=== PATIENT | male | born 1955 | race Caucasian/White ===

== ENCOUNTER 2019-02-13 12:58 | Day surgery (SDC) | payer OTHER ==
[2019-02-13] MEDS ORDERED: LR 1,000 ML IV ONE (13:17)
--- NOTE | 2019-02-13 15:46 | PDGENHP ---
History & Physical Chief Complaint: epi pain, anemia History of Present Illness: on xarelto x 1 year, worseing anemia. epi luq pain Pertinent Past, Social, Family History: no tobacco. no alcohol. fhx - sister colon rectal, dad - ureter. autonomic hyperreflexia Relevant Physical Exam: A+Ox3. CTA. S1S2. +BS, soft, nt Cardiorespiratory Assessment: class III
--- NOTE | 2019-02-13 15:50 | PDANEPAE ---
ANE Past Medical History - Cardiovascular History Hx Hypertension: No Hx Arrhythmias: Yes Hx Chest Pain: No Hx Coronary Artery / Peripheral Vascular Disease: No Hx CHF / Valvular Disease: No Hx Palpitations: No Cardiovascular History Comment: PAfib. CARDIAC ARREST 4YRS AGO - Pulmonary History Hx COPD: No Hx Asthma/Reactive Airway Disease: No Hx Recent Upper Respiratory Infection: No Hx Oxygen in Use at Home: No Hx Sleep Apnea: Yes Sleep Apnea Screening Result - Last Documented: Positive Pulmonary History Comment: tawny uses cpap - Neurologic History Hx Cerebrovascular Accident: No Hx Seizures: Yes Hx Dementia: No Neurologic History Comment: several months since last seizure - Endocrine History Hx Diabetes: No - Renal History Hx Renal Disorders: No - Liver History Hx Hepatic Disorders: No - Neurological & Psychiatric Hx Hx Neurological and Psychiatric Disorders: Yes Neurological / Psychiatric History Comment: spinal cord injury 1977 - Cancer History Hx Cancer: Yes Cancer History Comment: melanoma 20yrs ago. basal cell - Congenital Disorder History Hx Congenital Disorders: No - GI History Hx Gastrointestinal Disorders: Yes Gastrointestinal History Comment: abd pain,nausea, tends to be constipated - Other Health History Other Health History: condom catheter. wounds left lat back,left elbow,right hip sees woud clinic - Chronic Pain History Chronic Pain: Yes (back and abd) - Surgical History Prior Surgeries: debridment of wounds with wound vacs ANE Review of Systems Review of Systems: - Exercise capacity METS (RN): 1 METS ANE Patient History - Allergies Allergies/Adverse Reactions: prochlorperazine [From Compazine] Allergy (Verified 02/01/19 14:22) Itching CONTRAST IV Allergy (Uncoded 02/01/19 14:22) Other-Enter Comments - Home Medications Home Medications: Baclofen 02/01/19 [Last Taken Unknown] Bactrim DS 02/01/19 [Last Taken Unknown] Calcitriol (*) 02/01/19 [Last Taken Unknown] Cyanocobalamin (Vitamin B-12) 02/01/19 [Last Taken Unknown] Depakote 02/01/19 [Last Taken Unknown] Duloxetine HCl 02/01/19 [Last Taken Unknown] Fentanyl 02/01/19 [Last Taken Unknown] Gabapentin 02/01/19 [Last Taken Unknown] Ibuprofen 02/01/19 [Last Taken Unknown] Keppra 02/01/19 [Last Taken Unknown] Lacosamide 02/01/19 [Last Taken Unknown] Magnesium 02/01/19 [Last Taken Unknown] Methenamine Lucy 02/01/19 [Last Taken Unknown] Monurol 02/01/19 [Last Taken Unknown] Ondansetron HCl 02/01/19 [Last Taken Unknown] Prilosec 02/01/19 [Last Taken Unknown] Promethazine HCl 02/01/19 [Last Taken Unknown] Senokot 02/01/19 [Last Taken Unknown] Sodium Chloride 02/01/19 [Last Taken Unknown] Tamsulosin HCl 02/01/19 [Last Taken Unknown] Tums 500MG (*) 02/01/19 [Last Taken Unknown] Valium 02/01/19 [Last Taken Unknown] Valproic Acid 02/01/19 [Last Taken Unknown] Vitamin B Complex 02/01/19 [Last Taken Unknown] Xarelto 02/01/19 [Last Taken Unknown] tiZANidine HCL 02/01/19 [Last Taken Unknown] - NPO status NPO Since - Liquids (Date): 02/13/19 NPO Since - Liquids (Time): 08:00 NPO Since - Solids (Date): 02/12/19 NPO Since - Solids (Time): 22:00 - Smoking Hx Smoking Status: Never smoked - Family Anes Hx Family Hx Anesthesia Complications: none ANE Labs/Vital Signs - Vital Signs Heart Rate: 54 Respiratory Rate: 16 O2 Sat (%): 93 Height: 177.8 cm Weight: 81.647 kg ANE Physical Exam - Airway Neck exam: FROM Mallampati Score: Class 1 Mouth exam: normal dental/mouth exam - Pulmonary Pulmonary: no respiratory distress, no rales or rhonchi, clear to auscultation - Cardiovascular Cardiovascular: regular rate and rhythym, no murmur, rub, or gallop - ASA Status ASA Status: III ANE Anesthesia Plan Anesthesia Plan: GA with mask Total IV Anesthesia: Yes
--- NOTE | 2019-02-13 15:51 | POSTANESTH ---
Post Anesthetic Evaluation Cardiovascular Status: Normal, Stable Respiratory Status: Normal, Stable Level of Consciousness/Mental Status: Can Participate in Eval Pain Control: Adequate, Prn Tx Ordered Nausea/Vomiting Control: Adequate, Prn Tx Ordered Complications Possibly Related to Anesthesia: None Noted
[2019-02-13] MEDS ORDERED: PROPOFOL/EMULSION 500 MG/50 ML BOTTLE IV ONE (16:06)
[2019-02-13] MEDS ORDERED: LIDOCAINE 2% 2 ML INJ ONE (16:06)
[2019-02-13] MEDS ORDERED: ALBUTEROL 3 ML DEYVIAL IH PRN (16:37)
[2019-02-13] MEDS ORDERED: ALBUTEROL 3 ML DEYVIAL ONE (16:37)
[2019-02-13] MEDS ORDERED: EPINEPHrine RACEMIC INH 0.5 ML DEYVIAL IH ONE (16:38)
--- NOTE | 2019-02-13 16:44 | GIREPORT ---
[facility] - Endoscopy Department Patient Name: Jacobo Ayon Procedure Date: 02/13/2019 3:46 PM Patient Type: Outpatient Attending MD/ ER Physician: Sagar Carson MD Procedure: Upper GI endoscopy Indications: Abdominal pain in the left upper quadrant, Iron deficiency anemia due t o suspected upper gastrointestinal bleeding Providers: Sagar Carson MD Referring MD: Blaire Lemons NP Medicines: Propofol per Anesthesia Complications: No immediate complications. Estimated blood loss: Minimal. Description of Procedure: After obtaining informed consent, the endoscope was passed under direct vision. Throughout the procedure, the patient's blood pressure, pulse, and oxygen saturations were monitored continuously. The Endoscope was intro duced through the mouth, and advanced to the third part of duodenum. The uppe r GI endoscopy was accomplished without difficulty. The patient tolerated th e procedure well. Findings: The examined esophagus was normal. A hiatal hernia was present. Scattered moderate inflammation characterized by congestion (edema), erosions, erythema, friability and granularity was found in the gastric body. Biopsies were taken with a cold forceps for histology. Estimated blood loss was minimal. The examined duodenum was normal. The exam was otherwise without abnormality. Estimated Blood Loss: Estimated blood loss was minimal. Post Op Diagnosis: - Normal esophagus. - Hiatal hernia. - Gastritis. Biopsied. - Normal examined duodenum. - The examination was otherwise normal. Recommendation: - Await pathology results. - My office will call with the pathology result with 5-7 days. If you h ave not heard from my office by 12-14, do not assume the pathology is navi l, please call [phone] to get the pathology results. - Use Prilosec (omeprazole) 40 mg PO BID. Take 30-60 minutes before breakfast and dinner (could use pantoprazole 40mg or other PPI as per formulary) - If anemia doesn't resolve then consider repeat colonoscopy and small bowel capsule endoscopy. - Patient has a contact number available for emergencies. The signs and symptoms of potential delayed complications were discussed with the pat ient. Return to normal activities tomorrow. Written discharge instructions we re provided to the patient. - Continue present medications. - Discharge patient to home (ambulatory). - Return to primary care physician as previously scheduled. - Thank you for allowing me to help in your patient's care. Do not hesi colvin to call with any questions. Attending Participation: I personally performed the entire procedure. Alli Magana M.D Sagar Carson MD 02/13/2019 4:43:56 PM This report has been signed electronicallyMatthew MD Alli Number of Addenda: 0 Note Initiated On: 02/13/2019 3:46 PM [email or web address]
[2019-02-13 18:06] VITALS: BP 102/64
== END 2019-02-13 18:00 | disposition home or self-care (01) ==
LOC: FSGY 12:58
PROVIDERS: ATTEND Internal Medicine Gastroenterology
PROC: 0DB68ZX Excision of Stomach, Via Natural or Artificial Opening Endoscopic, Diagnostic (ICD-10-PCS; principal; 2019-02-13 15:15)
DX: D50.9 Iron deficiency anemia, unspecified (principal); K44.9 Diaphragmatic hernia without obstruction or gangrene; K29.70 Gastritis, unspecified, without bleeding; I48.0 Paroxysmal atrial fibrillation; Z86.74 Personal history of sudden cardiac arrest
CPT/HCPCS: J2704; J7613